=== PATIENT | male | born 1995 | race Caucasian/White ===

== ENCOUNTER 2025-03-25 11:01 | Emergency (ER) | payer OTHER | END 2025-03-25 11:52 | LOC: VM.ED 11:01 | DX: S01.81XA Laceration without foreign body of other part of head, initial encounter (principal); S01.01XA Laceration without foreign body of scalp, initial encounter; S01.111A Laceration without foreign body of right eyelid and periocular area, initial encounter; W22.8XXA Striking against or struck by other objects, initial encounter | CPT/HCPCS: 12002; 12013; 99283; J2003 ==

== ENCOUNTER 2025-03-25 16:31 | Observation (INO) | payer OTHER ==
[2025-03-25 16:59] LABS: BASOPHILS ABSOLUTE AUTO 0.0 x10^3/uL (0.0-0.2); BASOPHILS PERCENT AUTO 0.3 % (0.2-1.2); EOSINOPHILS ABSOLUTE AUTO 0.2 x10^3/uL (0.0-0.5); EOSINOPHILS PERCENT AUTO 2.3 % (0.0-4.0); IMMATURE GRAN ABSOLUTE AUTO 0.00 x10^3/uL (0.00-0.07); IMMATURE GRAN PERCENT AUTO 0.00 % (0.00-0.43); LYMPHOCYTES ABSOLUTE AUTO 1.4 x10^3/uL (1.0-4.8); LYMPHOCYTES PERCENT AUTO 20.2 % (25.0-50.0); MONOCYTES ABSOLUTE AUTO 0.7 x10^3/uL (0.0-0.8); MONOCYTES PERCENT AUTO 10.4 % (2.0-11.0); NEUTROPHILS ABSOLUTE AUTO 4.7 x10^3/uL (1.8-7.7); NEUTROPHILS PERCENT AUTO 66.8 % (50.0-80.0); PLATELET COUNT,PLT 187 x10^3/uL (130-400); RED BLOOD CELL COUNT 4.59 x10^6/uL (4.5-6.0); WHITE BLOOD CELL COUNT,WBC 7.0 x10^3/uL (4.0-10.0)
[2025-03-25] MEDS: Lactated Ringers 1,000 ML IV ONE ×2 (17:00→17:40)
[2025-03-25 17:23] LABS: LACTIC ACID 1.6 mmol/L (0.4-2.0)
[2025-03-25 17:29] LABS: A/G RATIO 1.09; ALANINE AMINOTRANSFERASE,ALT 52 U/L (16-63); ASPARTATE AMNIOTRANSFERASE,AST 24 U/L (15-37); BILIRUBIN TOTAL 0.8 mg/dL (0.2-1.0); BLOOD UREA NITROGEN,BUN 21 mg/dL (7-18); CARBON DIOXIDE,CO2 30 mmol/L (21-32); CHLORIDE,CL 102 mmol/L (98-107); CREATININE 1.4 mg/dL (0.70-1.30); GLUCOSE RANDOM 146 mg/dL (70-99); POTASSIUM,K 4.1 mmol/L (3.5-5.1); PROTEIN TOTAL,TP 7.1 g/dL (6.4-8.2); SODIUM,NA 137 mmol/L (136-145); TSH ULTRASENSITIVE 3.128 uIU/mL (0.358-3.74)
[2025-03-25 17:30] LABS: ESTIMATED GFR 69 mL/min (>=60); ETHANOL BLOOD MEDICAL < 3 mg/dL (0-3)
[2025-03-25 17:40] LABS: APPEARANCE,URINE CLEAR (CLEAR); GLUCOSE,URINE NEGATIVE (NEGATIVE); OCCULT BLOOD,URINE NEGATIVE (NEGATIVE)
[2025-03-25 17:50] LABS: AMPHETAMINES SCREEN, URINE NEGATIVE (NEGATIVE); BUPRENORPHINE SCREEN,URINE POSITIVE (NEGATIVE); COCAINE METABOLITES,URINE NEGATIVE (NEGATIVE); METHADONE SCREEN, URINE NEGATIVE (NEGATIVE); METHAMPHETAMINE SCREEN, URINE NEGATIVE (NEGATIVE)
[2025-03-25 17:51] LABS: OXYCODONE SCREEN,URINE NEGATIVE (NEGATIVE); PCP SCREEN,URINE NEGATIVE (NEGATIVE); THC SCREEN,URINE 50 NG/ML NEGATIVE (NEGATIVE)
[2025-03-25] MEDS ORDERED: Ondansetron 4 MG Tab.DIS PO PRN (18:54)
[2025-03-25] MEDS ORDERED: Acetaminophen/HYDROcodone 325-5 MG Tab PO PRN (18:54)
[2025-03-25] MEDS: Lactated Ringers 1,000 ML IV SCH (23:14)
[2025-03-26] MEDS: Lactated Ringers 1,000 ML IV SCH (00:21)
[2025-03-26 08:33] LABS: BLOOD UREA NITROGEN,BUN 19.0 mg/dL (7-18); CARBON DIOXIDE,CO2 31.0 mmol/L (21-32); CHLORIDE,CL 103.0 mmol/L (98-107); CREATININE 1.3 mg/dL (0.70-1.30); EST CRCL DRUG DOSING (CG) 85.01 mL/min; GLUCOSE RANDOM 112.0 mg/dL (70-99); POTASSIUM,K 4.4 mmol/L (3.5-5.1); SODIUM,NA 139.0 mmol/L (136-145)
[2025-03-26 08:39] LABS: ESTIMATED GFR 75.0 mL/min (>=60)
[2025-03-26] MEDS: BUPRENORPHINE SL SCH (14:43)
[2025-03-26] MEDS: [UNRECOGNIZED DRUG - OTHER] SL SCH (14:43)
[2025-03-26] MEDS: NALOXONE SL SCH (14:43)
[2025-03-26] MEDS: Amoxicillin/Clavulanate K 875-125 MG Tab PO SCH (14:43)
[2025-03-26] MEDS: Sennosides/Docusate Sodium 50-8.6 MG Tab PO SCH (18:27)
[2025-03-27] MEDS: Magnesium Citrate Solution 296 ML Bottle PO ONE (09:14)
== END 2025-03-28 12:20 ==
LOC: VM.ED 16:31 → VM.MS 18:21
PROVIDERS: ADMIT Family Medicine; ATTEND Family Medicine
DX: R33.9 Retention of urine, unspecified (principal); R29.6 Repeated falls; F19.90 Other psychoactive substance use, unspecified, uncomplicated; S06.0X0A Concussion without loss of consciousness, initial encounter; N28.9 Disorder of kidney and ureter, unspecified; E86.0 Dehydration; F41.9 Anxiety disorder, unspecified; W19.XXXA Unspecified fall, initial encounter; Z79.899 Other long term (current) drug therapy
CPT/HCPCS: 12011; 36415; 51798; 70450; 70486; 74018; 80048; 80053; 80305-QW; 80307; 81003; 83605; 83735; 84443; 84484; 85025; 86140; 93005; 96361; 96374; 99223-GT; 99232-GT; 99233-GT; 99239-GT; 99283; 99284-25; A9270-GY; G0378; J0696; J7120; Q3014